=== PATIENT | male | born 1955 | race Caucasian/White ===

== ENCOUNTER → 2016-09-01 | Outpatient (CLI) | payer OTHER ==
--- NOTE | ~2016-09-01 | PUL ---
PATIENT'S NAME: CUBA [facility] AGE: 61 Y [address] ROOM: [place] [address] LOCATION: [facility] ADMIT DATE: 09/01/2016 Pulmonary DISCHARGE DATE: FAMILY PHYSICIAN: Jenny Stafford MD ATTENDING PHYSICIAN: Seun Kim NAME OF PROCEDURE: Sleep Study PROCEDURE DATE: 09/01/2016 TECH: CARLY Montano TEST #: [facility] [place]# [id number] TECHNICAL PARAMETERS: The patient was studied using International 10/20 measuring system. While the patient was studied, there was continuous monitoring of EEG (8 leads), EOG (2 leads), EKG (3 leads), submental EMG (3 leads), tibial (4 leads), respiratory inductive plethysmography (RIP) for thoracic and abdominal effort, oral and nasal airflow with a thermocouple and pressure transducer, and oximetry. The quick service technician also performed visual and auditory observations noting things like body position, patient's status, breath sounds, artifact, snoring level and patient comments. Continuous sound was monitored using a 2-way speaker system and video monitoring was performed using an infrared camera. Review of the entire study was performed epoch by epoch utilizing a single epoch and multiple epoch capability sleep system. MEDICAL HISTORY: The patient is a 61-year-old overweight man with daytime sleepiness and snoring. SLEEP STAGE SUMMARY: The patient was studied for 388 minutes of which he slept 308 minutes. He fell asleep in 14 minutes and slept for 79% of the night. Sleep architecture revealed a decline in slow wave and REM sleep. RESPIRATORY SUMMARY: Oxygen saturations ranged from 79%-94%. There were 16 apneas and 96 hypopneas for an apnea/hypopnea index severely elevated at 22 events per hour. Respiratory events were equally distributed between supine and non supine position. EKG SUMMARY: No dysrhythmias were noted. LEG MOVEMENT SUMMARY: No clinically relevant periodic limb movements were noted. SUMMARY: Obstructive sleep apnea. PATIENT'S NAME: CUBA GRE[facility] AGE: 61 Y [address] ROOM: [place] [address] LOCATION: [facility] ADMIT DATE: 09/01/2016 Pulmonary DISCHARGE DATE: FAMILY PHYSICIAN: Jenny Stafford MD ATTENDING PHYSICIAN: Seun Kim PLAN: Would consider a repeat study for CPAP initiation and titration. Patient will receive results from the ordering provider. MD ELBA BECKER/ /[id number] dtt: 09/03/16 1303 , Juvenal Nieto. dtd: 09/03/16 1119
== END | disposition disaster alternative care site (69) ==
LOC: GSLP 20:05
DX: I25.10 Atherosclerotic heart disease of native coronary artery without angina pectoris (principal); E78.5 Hyperlipidemia, unspecified; G47.33 Obstructive sleep apnea (adult) (pediatric); I10 Essential (primary) hypertension; R63.5 Abnormal weight gain; Z87.898 Personal history of other specified conditions